=== PATIENT | male | born 1990 | race Caucasian/White ===

== ENCOUNTER 2018-11-02 10:14 | Day surgery (SDC) | payer MEDICAID ==
[2018-11-02] MEDS ORDERED: LIDOcaine 2% 5ml jelly ONE (11:36)
== END 2018-11-02 12:05 | disposition home or self-care (01) ==
LOC: WOUND CARE 10:14
PROVIDERS: ATTEND Surgery
DX: L98.492 Non-pressure chronic ulcer of skin of other sites with fat layer exposed (principal); L05.01 Pilonidal cyst with abscess; G40.409 Other generalized epilepsy and epileptic syndromes, not intractable, without status epilepticus; F20.9 Schizophrenia, unspecified
CPT/HCPCS: 97597; A4663; A6021

== ENCOUNTER 2018-11-09 09:10 | Day surgery (SDC) | payer MEDICAID ==
[2018-11-09] MEDS ORDERED: LIDOcaine 2% 5ml jelly ONE (09:40)
== END 2018-11-09 10:30 | disposition home or self-care (01) ==
LOC: WOUND CARE 09:10
PROVIDERS: ATTEND Surgery
DX: L98.492 Non-pressure chronic ulcer of skin of other sites with fat layer exposed (principal); L05.01 Pilonidal cyst with abscess; G40.409 Other generalized epilepsy and epileptic syndromes, not intractable, without status epilepticus; F20.9 Schizophrenia, unspecified
CPT/HCPCS: 97597; A4663; A6021

== ENCOUNTER 2018-11-16 09:15 | Day surgery (SDC) | payer MEDICAID ==
[2018-11-16] MEDS ORDERED: LIDOcaine 2% 5ml jelly ONE (09:29)
== END 2018-11-16 10:20 | disposition home or self-care (01) ==
LOC: WOUND CARE 09:15
PROVIDERS: ATTEND Surgery
DX: L98.492 Non-pressure chronic ulcer of skin of other sites with fat layer exposed (principal); L05.01 Pilonidal cyst with abscess; G40.409 Other generalized epilepsy and epileptic syndromes, not intractable, without status epilepticus; F20.9 Schizophrenia, unspecified
CPT/HCPCS: 97597; A6021

== ENCOUNTER 2018-11-23 09:30 | Day surgery (SDC) | payer MEDICAID ==
[2018-11-23] MEDS ORDERED: LIDOcaine 2% 5ml jelly ONE (10:11)
== END 2018-11-23 10:46 | disposition home or self-care (01) ==
LOC: WOUND CARE 09:30
PROVIDERS: ATTEND Surgery
DX: L98.492 Non-pressure chronic ulcer of skin of other sites with fat layer exposed (principal); L05.01 Pilonidal cyst with abscess; G40.409 Other generalized epilepsy and epileptic syndromes, not intractable, without status epilepticus; F20.9 Schizophrenia, unspecified
CPT/HCPCS: 97597; A4663; A6021

== ENCOUNTER 2018-11-29 09:05 | Day surgery (SDC) | payer MEDICAID ==
[2018-11-29] MEDS ORDERED: LIDOcaine 2% 5ml jelly ONE (09:28)
== END 2018-11-29 10:30 | disposition home or self-care (01) ==
LOC: WOUND CARE 09:05
PROVIDERS: ATTEND Surgery
DX: L98.492 Non-pressure chronic ulcer of skin of other sites with fat layer exposed (principal); L05.01 Pilonidal cyst with abscess; G40.409 Other generalized epilepsy and epileptic syndromes, not intractable, without status epilepticus; F20.9 Schizophrenia, unspecified
CPT/HCPCS: 97597; A4663; A6021

== ENCOUNTER 2018-12-06 10:09 | Day surgery (SDC) | payer MEDICAID ==
[2018-12-06] MEDS ORDERED: LIDOcaine 2% 5ml jelly ONE (11:02)
== END 2018-12-06 12:18 | disposition home or self-care (01) ==
LOC: WOUND CARE 10:09
PROVIDERS: ATTEND Surgery
DX: L98.492 Non-pressure chronic ulcer of skin of other sites with fat layer exposed (principal); L05.01 Pilonidal cyst with abscess; G40.409 Other generalized epilepsy and epileptic syndromes, not intractable, without status epilepticus; F20.9 Schizophrenia, unspecified
CPT/HCPCS: 97597; A4663; A6021

== ENCOUNTER 2018-12-27 10:09 | Outpatient (CLI) | payer MEDICAID | END 2018-12-27 11:20 | disposition home or self-care (01) | LOC: WOUND CARE 10:09 → EDSTATUS 10:30 → WOUND CARE 11:20 | PROVIDERS: ATTEND Surgery | DX: L98.492 Non-pressure chronic ulcer of skin of other sites with fat layer exposed (principal); L05.01 Pilonidal cyst with abscess; G40.409 Other generalized epilepsy and epileptic syndromes, not intractable, without status epilepticus; F20.9 Schizophrenia, unspecified | CPT/HCPCS: A4663; G0463 ==

== ENCOUNTER 2019-01-26 15:36 | Outpatient (CLI) | payer MEDICAID | END 2019-01-26 23:59 | disposition home or self-care (01) | LOC: RAD 15:36 | DX: R56.9 Unspecified convulsions (principal) | CPT/HCPCS: 95816 ==

== ENCOUNTER 2020-09-25 11:37 | Inpatient (IN) | payer MEDICAID ==
[~2020-09-25] VITALS: Ht 185.4 cm; Wt 99.1 kg
[2020-09-25] VITALS (15 sets, daily range): BP systolic 108–139; BP diastolic 70–86
[2020-09-25] MEDS ORDERED: levoFLOXACIN-Levaquin 750MG/D5 150 ML IV ONE (12:15)
[2020-09-25] MEDS ORDERED: normal saline 1000ML IV soln IV ONE (12:15)
[2020-09-25] MEDS ORDERED: morphine 4 MG/ML inj SYRINge IV PRN ×3 (12:15→17:40)
[2020-09-25] MEDS ORDERED: ondansetron/PF 4mg/2ml inj IV ONE (12:15)
[2020-09-25 12:32] LABS: BASOPHILS % (AUTO) 0.1 % (0-1); EOSINOPHILS % (AUTO) 0 % (0-6); HEMATOCRIT 44.5 % (42.0-52.0); HEMOGLOBIN 15.2 g/dl (14.0-17.9); LYMPHOCYTES # (AUTO) 0.6 X10'3 (1.1-4.8); LYMPHOCYTES % (AUTO) 3.1 % (21-51); MEAN CORPUSCULAR HEMOGLOBIN 29.3 PG (27.0-31.0); MEAN CORPUSCULAR HGB CONC 34.2 g/dL (33.0-36.5); MEAN CORPUSCULAR VOLUME 85.8 FL (78-98); MEAN PLATELET VOLUME 8.2 FL (7.4-10.4); MONOCYTES # (AUTO) 0.8 X10'3 (0-0.9); MONOCYTES % (AUTO) 3.9 % (2-12); NEUTROPHILS # (AUTO) 18.5 X10'3 (1.8-7.7); NEUTROPHILS % (AUTO) 92.9 % (42-75); PLATELET COUNT 266 X10'3 (140-440); RED BLOOD COUNT 5.19 X10'6 (4.70-6.10); RED CELL DISTRIBUTION WIDTH 13.8 % (11.5-14.5); WHITE BLOOD COUNT 19.9 X10'3 (4.5-11.0)
[2020-09-25 12:46] LABS: ALANINE AMINOTRANSFERASE 26 U/L (12-78); ALBUMIN 4.1 G/DL (3.4-5.0); ALBUMIN/GLOBULIN RATIO 0.9 (1.1-1.5); ALKALINE PHOSPHATASE 53 IU/L (46-116); ANION GAP 13 (8-16); ASPARTATE AMINO TRANSFERASE 15 U/L (10-37); BLOOD UREA NITROGEN 21 MG/DL (7-18); BUN/CREATININE RATIO 8.7 (5.4-32.0); CHLORIDE 95 MMOL/L (99-107); CREATININE 2.41 MG/DL (0.60-1.10); GLUCOSE 173 MG/DL (70-104); LIPASE < 50 U/L (73-393); POTASSIUM 3.8 MMOL/L (3.5-5.1); SODIUM 131 MMOL/L (135-145); TOTAL PROTEIN 8.6 G/DL (6.4-8.2); eGFR 32 ML/MIN
[2020-09-25] MEDS ORDERED: iohexol 300mg/ml 100ml inj. ONE (13:19)
[2020-09-25 13:43] LABS: TOTAL CELLS COUNTED 100
[2020-09-25 13:44] LABS: PLATELET ESTIMATE NORMAL; TOXIC GRANULATION 1+; TOXIC VACUOLATION 1+
[2020-09-25] MEDS ORDERED: metroNIDAZOLE-Flagyl 500mg/NS 100 ML IV STA (14:18)
[2020-09-25] MEDS ORDERED: morphine 2 MG/ML inj. syringe IV PRN ×3 (14:20→17:40)
[2020-09-25] MEDS ORDERED: mag hydrox/Alum hydrox/simeth 30ml oral suspension PO PRN (14:20)
[2020-09-25] MEDS ORDERED: magnesium hydroxide 30ml (MOM) UD suspension PO PRN (14:20)
[2020-09-25] MEDS ORDERED: normal saline 1000ml 1,000 ML IV SCH (14:20)
[2020-09-25] MEDS ORDERED: acetaminophen 325mg tablet PO PRN (14:20)
[2020-09-25] MEDS ORDERED: CHOL200080 PO (15:08)
[2020-09-25] MEDS ORDERED: LAMO150T6 PO (15:08)
[2020-09-25] MEDS ORDERED: BENZ0.5T4 PO (15:08)
[2020-09-25] MEDS ORDERED: HYDR50TA65 PO (15:08)
[2020-09-25] MEDS ORDERED: OLAN20TA34 PO (15:08)
[2020-09-25] MEDS ORDERED: PERP4TAB11 PO (15:08)
[2020-09-25] MEDS ORDERED: FENO200C23 PO (15:08)
--- NOTE | 2020-09-25 15:50 | NUR ---
PT LAST ATE WEDNESDAY, LAST FLUID INTAKE 629 THIS AM. NATHAN CALLED FROM OR AND WILL BE COMING TO GET PT WITHIN THE HOUR
[2020-09-25] MEDS ORDERED: metroNIDAZOLE-Flagyl 500mg/NS 100 ML IV SCH (16:00)
[2020-09-25] MEDS ORDERED: BUPIVAcaine 0.5% inj/PF 30 ML ONE (16:34)
[2020-09-25] MEDS ORDERED: LIDOcaine 1% 30ml preserv. free vial ONE (16:34)
[2020-09-25] MEDS ORDERED: ondansetron/PF 4mg/2ml inj IV PRN ×3 (17:05→19:05)
[2020-09-25] MEDS ORDERED: meperidine/PF 25mg/ml syringe IV PRN ×4 (17:05→17:40)
[2020-09-25] MEDS ORDERED: HYDROmorphone/PF 0.2 MG/ML SYRINGE IV PRN ×2 (17:05)
[2020-09-25] MEDS ORDERED: ringers solution, lacted 1,000 ML IV SCH ×2 (17:05→17:40)
[2020-09-25] MEDS ORDERED: propofol inj 20 ML IV ONE (17:28)
[2020-09-25] MEDS ORDERED: midazolam 1 mg/ML 2ml injection ONE (17:28)
[2020-09-25] MEDS ORDERED: fentaNYL /PF 50mcg/ml 5ml ampule ONE (17:28)
[2020-09-25] MEDS ORDERED: rocuronium 10mg/ml inj IV ONE (17:29)
[2020-09-25] MEDS ORDERED: proCHLORperazine 10 MG/2 ml inj IV PRN (17:40)
[2020-09-25] MEDS ORDERED: sevoflurane 250ml liquid IH ONE (17:46)
[2020-09-25] MEDS ORDERED: BUPIVAcaine 0.5% inj/PF 30 ml vial IJ ONE (18:26)
[2020-09-25] MEDS ORDERED: neostigmine methylsulfate 1 MG/ML 10ml vial ONE (18:51)
[2020-09-25] MEDS ORDERED: glycopyrrolate 0.2mg/ml inj ONE (18:51)
[2020-09-25] MEDS ORDERED: ondansetron/PF 4mg/2ml inj ONE (18:54)
[2020-09-25] MEDS ORDERED: normal saline 1000ml 1,000 ML IV ONE (19:05)
--- NOTE | 2020-09-25 19:10 | NUR ---
PT ARRIVED FROM OR VIA BED WITH DR. HINOJOSA, ANESTHESIA REPORT GIVEN, VSS, PT SLEEPING STILL, NO SN/SX OF PAIN NOTED, F/C PLACED IN OR-DRAINING DARK YELLOW URINE, SCDS IN PLACE, 20G PIV TO RUE-LR RUNNING, LAP SITES X3 COVERED WITH BANDAIDS-CDI, SHARRI TO RLQ-DRAINING SERO-SANGUINE FLUID, PT IS AUTISTIC, HX OF SEIZURES-NO SN/SX OF ANY ACTIVITY AT THIS TIME.
[2020-09-25] MEDS: lamoTRIgine 100mg tablet PO SCH (20:00)
[2020-09-25] MEDS: lamoTRIgine 25mg tablet PO SCH (20:00)
[2020-09-25] MEDS: heparin, porcine 5000 units/ml vial SQ SCH (20:00)
[2020-09-25] MEDS: acetaminophen 325mg tablet PO SCH (20:00)
[2020-09-25] MEDS: benztropine 1mg tablet PO SCH (20:00)
[2020-09-25] MEDS: ringers solution, lacted 1,000 ML IV SCH (20:17)
--- NOTE | 2020-09-25 20:30 | NUR ---
PT AWAKE, ABLE TO ANSWER QUESTIONS-DENIES PAIN BUT ENCOURAGED TO SHARE IF ANY PAIN OR NAUSEA STARTS, PT SLOW TO ANSWER BUT ANSWERING APPROPRIATELY WHEN ASKED, PT RECEIVED IV NS BOLUS 1 LTR AND THEN STARTED ON MAINTENANCE FLUID LR@150ML/HR, F/C DRAINING DARK URINE WELL, LAP SITES X 4 COVERED WITH BANDAIDS-CDI, SHARRI TO UPPER RIGHT QUAD-SXN INTACT, SEROUS FLUID, SCDS IN PLACE, 02 VIA NC ON PT, VSS, REPORT CALLED TO [employer] OFFICER[employer], ALL QUESTIONS ANSWERED, TAKEN WITH BELONGINGS TO ROOM 340A, HOOKED UP TO MONITORS, BED LOW AND LOCKED, CALL LIGHT IN REACH, PROJECT ADMINISTRATOR AND DAD AT BEDSIDE TO ANSWER QUESTIONS FOR PRIMARY RN JUDY KIM.
--- NOTE | 2020-09-25 20:45 | NUR ---
PATIENT ADMITTED TO ROOM 340A FROM RECOVERY ROOM AFTER LAP APPY WAS DON BY DR. HUERTAS. PLACED COMFORTABLE IN BED. VITAL SIGNS MONITORED.
[2020-09-25] MEDS: olanzapine 10mg tablet PO SCH (21:00)
[2020-09-25] MEDS: hydrOXYzine 25 MG tablet PO SCH (21:00)
[2020-09-26] VITALS (7 sets, daily range): BP systolic 120–136; BP diastolic 69–88
[2020-09-26] MEDS: metroNIDAZOLE-Flagyl 500mg/NS 100 ML IV SCH ×3 (00:32→16:22)
[2020-09-26] MEDS: acetaminophen 325mg tablet PO SCH ×4 (02:00→20:44)
[2020-09-26] MEDS: ondansetron/PF 4mg/2ml inj IV PRN ×2 (02:07→13:24)
[2020-09-26] MEDS: HYDROmorphone 1 mg/ml syringe IV PRN ×3 (02:10→20:44)
[2020-09-26] MEDS: ringers solution, lacted 1,000 ML IV SCH ×4 (04:56→22:26)
--- NOTE | 2020-09-26 06:15 | NUR ---
Patient in room [facility]. I have received report from Susan Davis RN and had the opportunity to ask questions and assume patient care.
--- NOTE | 2020-09-26 06:30 | NUR ---
Problems reprioritized. Patient report given, questions answered & plan of care reviewed with CHING MAC.
[2020-09-26] MEDS: benztropine 1mg tablet PO SCH ×2 (07:26→20:53)
[2020-09-26] MEDS: cholecalciferol (vitamin D3) 1,000 unit (25mcg) tablet PO SCH (07:27)
[2020-09-26] MEDS: lamoTRIgine 25mg tablet PO SCH ×2 (07:28→20:47)
[2020-09-26] MEDS: hydrOXYzine 25 MG tablet PO SCH ×3 (07:29→20:48)
[2020-09-26] MEDS: lamoTRIgine 100mg tablet PO SCH ×2 (07:38→20:47)
[2020-09-26 07:54] LABS: ALBUMIN 2.7 G/DL (3.4-5.0); ANION GAP 14 (8-16); BASOPHILS % (AUTO) 0.2 % (0-1); BLOOD UREA NITROGEN 13 MG/DL (7-18); BUN/CREATININE RATIO 10.6 (5.4-32.0); CALCIUM 7.8 MG/DL (8.5-10.1); CHLORIDE 104 MMOL/L (99-107); CREATININE 1.23 MG/DL (0.60-1.10); EOSINOPHILS % (AUTO) 0 % (0-6); GLUCOSE 125 MG/DL (70-104); HEMOGLOBIN 13.4 g/dl (14.0-17.9); LYMPHOCYTES # (AUTO) 0.7 X10'3 (1.1-4.8); LYMPHOCYTES % (AUTO) 4.6 % (21-51); MEAN CORPUSCULAR HEMOGLOBIN 30.2 PG (27.0-31.0); MEAN CORPUSCULAR HGB CONC 34.4 g/dL (33.0-36.5); MEAN CORPUSCULAR VOLUME 87.8 FL (78-98); MEAN PLATELET VOLUME 8.2 FL (7.4-10.4); MONOCYTES # (AUTO) 0.6 X10'3 (0-0.9); MONOCYTES % (AUTO) 4.3 % (2-12); NEUTROPHILS % (AUTO) 90.9 % (42-75); PLATELET COUNT 211 X10'3 (140-440); POTASSIUM 3.8 MMOL/L (3.5-5.1); RED BLOOD COUNT 4.44 X10'6 (4.70-6.10); RED CELL DISTRIBUTION WIDTH 14.1 % (11.5-14.5); SODIUM 139 MMOL/L (135-145); TOTAL CARBON DIOXIDE 20.6 MMOL/L (24-32); WHITE BLOOD COUNT 14.3 X10'3 (4.5-11.0); eGFR 69 ML/MIN
[2020-09-26] MEDS ORDERED: enoxaparin 40mg/0.4ml syringe SUBCUT SCH (08:00)
[2020-09-26] MEDS: levoFLOXACIN-Levaquin 750MG/D5 150 ML IV SCH (09:11)
[2020-09-26] MEDS: fenofibrate 145mg tablet PO SCH (09:11)
--- NOTE | 2020-09-26 09:26 | NUR ---
PAGER ID: [phone] MESSAGE: [phone] - re [id number] Desha[facility]. He has an order for Lovenox q day and Heparin Q12H. Do you want both?
[2020-09-26] MEDS: heparin, porcine 5000 units/ml vial SQ SCH ×2 (09:30→20:43)
--- NOTE | 2020-09-26 09:30 | NUR ---
Spoke with Dr. Murillo, verified that both orders heparin q12h and lovenox q day were both wanted. said that the pt needed both the heparin and lovenox administered today.
--- NOTE | 2020-09-26 10:43 | NUR ---
Physical Assessment reviewed and agreed with Beth Lockhart's findings.
--- NOTE | 2020-09-26 18:57 | NUR ---
Problems reprioritized. Patient report given, questions answered & plan of care reviewed with Sisi MAC.
[2020-09-26] MEDS: lactobacillus rhamnosus 10,000 MMU CELLS/CAPSULE PO SCH (20:46)
[2020-09-26] MEDS: olanzapine 10mg tablet PO SCH (20:47)
[2020-09-27] VITALS: BP 136/90
[2020-09-27] MEDS: metroNIDAZOLE-Flagyl 500mg/NS 100 ML IV SCH ×3 (00:08→16:33)
[2020-09-27] MEDS: acetaminophen 325mg tablet PO SCH ×5 (01:41→21:46)
[2020-09-27] MEDS: HYDROmorphone inj. 0.5 MG/0.5 ML DISP.SYRIN IV PRN ×2 (01:41→09:17)
[2020-09-27] MEDS: ringers solution, lacted 1,000 ML IV SCH ×4 (04:25→17:45)
--- NOTE | 2020-09-27 06:10 | NUR ---
Problems reprioritized. Patient report given, questions answered & plan of care reviewed with Kerry MAC. Addendum: 09/27/20 at 0610 by Josey Sahu RN Amended: Links added.
[2020-09-27 07:00] VITALS: BP 140/93
[2020-09-27 07:08] LABS: BASOPHILS % (AUTO) 0.3 % (0-1); EOSINOPHILS % (AUTO) 0 % (0-6); HEMATOCRIT 37.3 % (42.0-52.0); HEMOGLOBIN 12.7 g/dl (14.0-17.9); LYMPHOCYTES # (AUTO) 0.9 X10'3 (1.1-4.8); LYMPHOCYTES % (AUTO) 8.6 % (21-51); MEAN CORPUSCULAR HEMOGLOBIN 29.9 PG (27.0-31.0); MEAN CORPUSCULAR HGB CONC 34.2 g/dL (33.0-36.5); MEAN CORPUSCULAR VOLUME 87.6 FL (78-98); MEAN PLATELET VOLUME 8.1 FL (7.4-10.4); MONOCYTES # (AUTO) 0.6 X10'3 (0-0.9); MONOCYTES % (AUTO) 5.3 % (2-12); NEUTROPHILS # (AUTO) 9.3 X10'3 (1.8-7.7); NEUTROPHILS % (AUTO) 85.8 % (42-75); PLATELET COUNT 247 X10'3 (140-440); RED BLOOD COUNT 4.26 X10'6 (4.70-6.10); RED CELL DISTRIBUTION WIDTH 14.1 % (11.5-14.5); WHITE BLOOD COUNT 10.8 X10'3 (4.5-11.0)
[2020-09-27 07:24] LABS: ALBUMIN 2.4 G/DL (3.4-5.0); ANION GAP 12 (8-16); BLOOD UREA NITROGEN 14 MG/DL (7-18); BUN/CREATININE RATIO 13.1 (5.4-32.0); CALCIUM 8.1 MG/DL (8.5-10.1); CHLORIDE 103 MMOL/L (99-107); CREATININE 1.07 MG/DL (0.60-1.10); GLUCOSE 120 MG/DL (70-104); POTASSIUM 3.7 MMOL/L (3.5-5.1); SODIUM 139 MMOL/L (135-145); TOTAL CARBON DIOXIDE 24.5 MMOL/L (24-32); eGFR 81 ML/MIN
[2020-09-27] MEDS: ondansetron/PF 4mg/2ml inj IV PRN ×2 (09:17→18:17)
[2020-09-27] MEDS: heparin, porcine 5000 units/ml vial SQ SCH ×2 (09:18→20:47)
[2020-09-27] MEDS: levoFLOXACIN-Levaquin 750MG/D5 150 ML IV SCH (10:43)
[2020-09-27 11:00] VITALS: BP 142/95
[2020-09-27] MEDS: fenofibrate 145mg tablet PO SCH (11:07)
[2020-09-27] MEDS: lamoTRIgine 25mg tablet PO SCH ×2 (11:07→20:42)
[2020-09-27] MEDS: lamoTRIgine 100mg tablet PO SCH ×2 (11:09→20:41)
[2020-09-27] MEDS: lactobacillus rhamnosus 10,000 MMU CELLS/CAPSULE PO SCH ×2 (11:10→20:41)
[2020-09-27] MEDS: benztropine 1mg tablet PO SCH ×2 (11:10→20:55)
[2020-09-27] MEDS: hydrOXYzine 25 MG tablet PO SCH ×3 (11:10→20:40)
[2020-09-27] MEDS: cholecalciferol (vitamin D3) 1,000 unit (25mcg) tablet PO SCH (11:11)
[2020-09-27 18:00] VITALS: BP 142/90
--- NOTE | 2020-09-27 18:14 | NUR ---
Patient in room [facility]. I have received report from ESTEFANIA Hale and had the opportunity to ask questions and assume patient care.
--- NOTE | 2020-09-27 18:49 | NUR ---
Problems reprioritized. Patient report given, questions answered & plan of care reviewed with Chong MAC.
[2020-09-27] MEDS: olanzapine 10mg tablet PO SCH (20:44)
[2020-09-27] MEDS: morphine 2 MG/ML inj. syringe IV PRN (20:49)
[2020-09-28] VITALS: BP 126/86
[2020-09-28] MEDS: metroNIDAZOLE-Flagyl 500mg/NS 100 ML IV SCH ×3 (00:07→17:01)
[2020-09-28] MEDS: ringers solution, lacted 1,000 ML IV SCH ×4 (00:25→20:31)
[2020-09-28 07:17] LABS: BASOPHILS % (AUTO) 0.3 % (0-1); EOSINOPHILS % (AUTO) 0 % (0-6); HEMATOCRIT 36.2 % (42.0-52.0); HEMOGLOBIN 12.4 g/dl (14.0-17.9); LYMPHOCYTES # (AUTO) 1.5 X10'3 (1.1-4.8); LYMPHOCYTES % (AUTO) 18.4 % (21-51); MEAN CORPUSCULAR HEMOGLOBIN 29.7 PG (27.0-31.0); MEAN CORPUSCULAR HGB CONC 34.2 g/dL (33.0-36.5); MEAN CORPUSCULAR VOLUME 86.8 FL (78-98); MEAN PLATELET VOLUME 7.5 FL (7.4-10.4); MONOCYTES # (AUTO) 0.5 X10'3 (0-0.9); MONOCYTES % (AUTO) 6.2 % (2-12); NEUTROPHILS % (AUTO) 75.1 % (42-75); PLATELET COUNT 288 X10'3 (140-440); RED BLOOD COUNT 4.17 X10'6 (4.70-6.10); RED CELL DISTRIBUTION WIDTH 14.4 % (11.5-14.5)
[2020-09-28 07:32] LABS: ALBUMIN 2.1 G/DL (3.4-5.0); ANION GAP 7 (8-16); BLOOD UREA NITROGEN 13 MG/DL (7-18); BUN/CREATININE RATIO 12.5 (5.4-32.0); CALCIUM 7.9 MG/DL (8.5-10.1); CHLORIDE 106 MMOL/L (99-107); CREATININE 1.04 MG/DL (0.60-1.10); GLUCOSE 105 MG/DL (70-104); POTASSIUM 3.5 MMOL/L (3.5-5.1); SODIUM 139 MMOL/L (135-145); eGFR 83 ML/MIN
[2020-09-28 08:00] VITALS: BP 129/87
[2020-09-28] MEDS: lamoTRIgine 100mg tablet PO SCH ×2 (08:00→20:26)
[2020-09-28] MEDS: fenofibrate 145mg tablet PO SCH (08:13)
[2020-09-28] MEDS: lactobacillus rhamnosus 10,000 MMU CELLS/CAPSULE PO SCH ×2 (08:13→20:25)
[2020-09-28] MEDS: cholecalciferol (vitamin D3) 1,000 unit (25mcg) tablet PO SCH (08:14)
[2020-09-28] MEDS: lamoTRIgine 25mg tablet PO SCH ×3 (08:14→20:25)
[2020-09-28] MEDS: acetaminophen 325mg tablet PO SCH ×3 (08:14→20:27)
[2020-09-28] MEDS: hydrOXYzine 25 MG tablet PO SCH ×3 (08:15→20:25)
[2020-09-28] MEDS: heparin, porcine 5000 units/ml vial SQ SCH ×2 (08:18→20:28)
[2020-09-28] MEDS: benztropine 1mg tablet PO SCH ×2 (08:20→20:24)
[2020-09-28] MEDS: levoFLOXACIN-Levaquin 750MG/D5 150 ML IV SCH (09:36)
[2020-09-28 11:00] VITALS: BP 120/83
--- NOTE | 2020-09-28 12:08 | NUR ---
Patient up OOB walked hallway with care process manager, tolerated well.
[2020-09-28] MEDS: morphine 2 MG/ML inj. syringe IV PRN ×2 (17:02→20:34)
--- NOTE | 2020-09-28 18:20 | NUR ---
Report given to NOC shift.
[2020-09-28 20:00] VITALS: BP 132/87
[2020-09-28] MEDS: olanzapine 10mg tablet PO SCH (20:30)
[2020-09-28] MEDS: HYDROmorphone inj. 0.5 MG/0.5 ML DISP.SYRIN IV PRN (22:55)
[2020-09-29] VITALS: BP 136/93
[2020-09-29] MEDS: metroNIDAZOLE-Flagyl 500mg/NS 100 ML IV SCH ×3 (00:45→15:23)
[2020-09-29] MEDS: acetaminophen 325mg tablet PO SCH ×4 (02:00→19:52)
[2020-09-29] MEDS: HYDROmorphone inj. 0.5 MG/0.5 ML DISP.SYRIN IV PRN ×2 (02:52→08:39)
[2020-09-29] MEDS: ringers solution, lacted 1,000 ML IV SCH ×3 (04:59→21:37)
--- NOTE | 2020-09-29 06:34 | NUR ---
Problems reprioritized. Patient report given, questions answered & plan of care reviewed with Michelle MAC. Addendum: 09/29/20 at 0634 by Josey Sahu RN Amended: Links added.
--- NOTE | 2020-09-29 06:48 | NUR ---
Patient in room [facility]. I have received report from ESTEFANIA Dowling and had the opportunity to ask questions and assume patient care.
[2020-09-29 07:42] LABS: HEMATOCRIT 38.8 % (42.0-52.0); HEMOGLOBIN 13.2 g/dl (14.0-17.9); MEAN CORPUSCULAR HEMOGLOBIN 29.7 PG (27.0-31.0); MEAN CORPUSCULAR VOLUME 87.5 FL (78-98); PLATELET COUNT 327 X10'3 (140-440); RED BLOOD COUNT 4.43 X10'6 (4.70-6.10); RED CELL DISTRIBUTION WIDTH 14.4 % (11.5-14.5); WHITE BLOOD COUNT 9.5 X10'3 (4.5-11.0)
[2020-09-29 07:43] LABS: BASOPHILS % (AUTO) 0.4 % (0-1); EOSINOPHILS % (AUTO) 0 % (0-6); LYMPHOCYTES # (AUTO) 1.1 X10'3 (1.1-4.8); LYMPHOCYTES % (AUTO) 11.3 % (21-51); MEAN PLATELET VOLUME 7.3 FL (7.4-10.4); MONOCYTES # (AUTO) 0.7 X10'3 (0-0.9); MONOCYTES % (AUTO) 6.9 % (2-12); NEUTROPHILS # (AUTO) 7.7 X10'3 (1.8-7.7); NEUTROPHILS % (AUTO) 81.4 % (42-75)
[2020-09-29 07:44] LABS: ALBUMIN 2.3 G/DL (3.4-5.0); ANION GAP 11 (8-16); BLOOD UREA NITROGEN 10 MG/DL (7-18); BUN/CREATININE RATIO 10.1 (5.4-32.0); CALCIUM 8.1 MG/DL (8.5-10.1); CHLORIDE 105 MMOL/L (99-107); CREATININE 0.99 MG/DL (0.60-1.10); GLUCOSE 97 MG/DL (70-104); POTASSIUM 3.6 MMOL/L (3.5-5.1); SODIUM 139 MMOL/L (135-145); TOTAL CARBON DIOXIDE 22.9 MMOL/L (24-32); eGFR 88 ML/MIN
[2020-09-29] MEDS: benztropine 1mg tablet PO SCH ×2 (08:00→19:54)
[2020-09-29] MEDS: heparin, porcine 5000 units/ml vial SQ SCH ×2 (08:38→19:53)
[2020-09-29] MEDS: lamoTRIgine 25mg tablet PO SCH ×2 (08:39→19:51)
[2020-09-29] MEDS: hydrOXYzine 25 MG tablet PO SCH ×3 (08:39→21:38)
[2020-09-29] MEDS: cholecalciferol (vitamin D3) 1,000 unit (25mcg) tablet PO SCH (08:39)
[2020-09-29] MEDS: lamoTRIgine 100mg tablet PO SCH ×2 (08:39→19:51)
[2020-09-29] MEDS: fenofibrate 145mg tablet PO SCH (08:40)
[2020-09-29] MEDS: levoFLOXACIN-Levaquin 750MG/D5 150 ML IV SCH (08:40)
[2020-09-29] MEDS: lactobacillus rhamnosus 10,000 MMU CELLS/CAPSULE PO SCH ×2 (08:40→19:55)
[2020-09-29 11:04] VITALS: BP 140/95
[2020-09-29 18:00] VITALS: BP 130/88
--- NOTE | 2020-09-29 18:10 | NUR ---
Patient in room [facility]A. I have received report from ESTEFANIA Martinez and had the opportunity to ask questions and assume patient care.
--- NOTE | 2020-09-29 18:26 | NUR ---
Problems reprioritized. Patient report given, questions answered & plan of care reviewed with ESTEFANIA Silva.
[2020-09-29] MEDS: magnesium hydroxide 30ml (MOM) UD suspension PO SCH (19:53)
[2020-09-29] MEDS: olanzapine 10mg tablet PO SCH (21:38)
[2020-09-30] VITALS: BP 126/81
[2020-09-30] MEDS: metroNIDAZOLE-Flagyl 500mg/NS 100 ML IV SCH ×3 (00:05→17:31)
[2020-09-30] MEDS: acetaminophen 325mg tablet PO SCH ×4 (02:00→20:07)
--- NOTE | 2020-09-30 06:30 | NUR ---
Problems reprioritized. Patient report given, questions answered & plan of care reviewed with ESTEFANIA Pizarro.
[2020-09-30 06:41] LABS: BASOPHILS % (AUTO) 0.4 % (0-1); EOSINOPHILS % (AUTO) 0 % (0-6); HEMATOCRIT 38.2 % (42.0-52.0); HEMOGLOBIN 13.3 g/dl (14.0-17.9); LYMPHOCYTES # (AUTO) 1.4 X10'3 (1.1-4.8); LYMPHOCYTES % (AUTO) 14.7 % (21-51); MEAN CORPUSCULAR HEMOGLOBIN 29.6 PG (27.0-31.0); MEAN CORPUSCULAR HGB CONC 34.9 g/dL (33.0-36.5); MEAN CORPUSCULAR VOLUME 84.8 FL (78-98); MEAN PLATELET VOLUME 7.3 FL (7.4-10.4); MONOCYTES # (AUTO) 0.8 X10'3 (0-0.9); MONOCYTES % (AUTO) 8.5 % (2-12); NEUTROPHILS # (AUTO) 7.1 X10'3 (1.8-7.7); NEUTROPHILS % (AUTO) 76.4 % (42-75); PLATELET COUNT 366 X10'3 (140-440); RED CELL DISTRIBUTION WIDTH 14.4 % (11.5-14.5); WHITE BLOOD COUNT 9.2 X10'3 (4.5-11.0)
[2020-09-30 06:54] LABS: ALBUMIN 2.2 G/DL (3.4-5.0); ANION GAP 13 (8-16); BLOOD UREA NITROGEN 13 MG/DL (7-18); CALCIUM 8.1 MG/DL (8.5-10.1); CHLORIDE 104 MMOL/L (99-107); CREATININE 0.93 MG/DL (0.60-1.10); GLUCOSE 100 MG/DL (70-104); POTASSIUM 3.4 MMOL/L (3.5-5.1); SODIUM 139 MMOL/L (135-145); TOTAL CARBON DIOXIDE 21.8 MMOL/L (24-32); eGFR > 90 ML/MIN
[2020-09-30 07:00] VITALS: BP 128/81
[2020-09-30 07:46] LABS: PLATELET ESTIMATE NORMAL; TOTAL CELLS COUNTED 100
[2020-09-30] MEDS: magnesium hydroxide 30ml (MOM) UD suspension PO SCH ×2 (07:50→20:06)
[2020-09-30] MEDS: lamoTRIgine 25mg tablet PO SCH ×2 (07:50→20:07)
[2020-09-30] MEDS: hydrOXYzine 25 MG tablet PO SCH ×3 (07:52→20:08)
[2020-09-30] MEDS: lamoTRIgine 100mg tablet PO SCH ×2 (07:52→20:07)
[2020-09-30] MEDS: fenofibrate 145mg tablet PO SCH (07:52)
[2020-09-30] MEDS: lactobacillus rhamnosus 10,000 MMU CELLS/CAPSULE PO SCH ×2 (07:52→20:06)
[2020-09-30] MEDS: cholecalciferol (vitamin D3) 1,000 unit (25mcg) tablet PO SCH (07:53)
[2020-09-30] MEDS: benztropine 1mg tablet PO SCH ×2 (07:54→20:08)
[2020-09-30] MEDS: heparin, porcine 5000 units/ml vial SQ SCH ×2 (07:55→20:08)
[2020-09-30] MEDS ORDERED: magnesium hydroxide 30ml (MOM) UD suspension PO ONE (10:05)
[2020-09-30 11:00] VITALS: BP 126/82
[2020-09-30] MEDS: levoFLOXACIN-Levaquin 750MG/D5 150 ML IV SCH (11:02)
[2020-09-30 18:00] VITALS: BP_SYST 128; BP_SYST 154; BP_DIAS 79; BP_DIAS 89
--- NOTE | 2020-09-30 18:32 | NUR ---
Report given to Shira MAC
[2020-09-30] MEDS: ondansetron/PF 4mg/2ml inj IV PRN (20:04)
[2020-09-30] MEDS: olanzapine 10mg tablet PO SCH (20:08)
[2020-09-30] MEDS: diatr meglu/diatrizoate 30ml oral sol.-(3 dose) bottle PO SCH (21:38)
[2020-10-01] VITALS: BP 125/81
[2020-10-01] MEDS: metroNIDAZOLE-Flagyl 500mg/NS 100 ML IV SCH ×3 (00:42→18:06)
[2020-10-01] MEDS: ringers solution, lacted 1,000 ML IV SCH ×2 (00:42→21:34)
[2020-10-01] MEDS: acetaminophen 325mg tablet PO SCH ×4 (01:42→19:50)
--- NOTE | 2020-10-01 06:05 | NUR ---
Patient in room [facility]. I have received report from Shira MAC and had the opportunity to ask questions and assume patient care.
[2020-10-01] MEDS: lactobacillus rhamnosus 10,000 MMU CELLS/CAPSULE PO SCH ×2 (07:31→19:50)
[2020-10-01] MEDS: diatr meglu/diatrizoate 30ml oral sol.-(3 dose) bottle PO SCH ×2 (07:31→09:45)
[2020-10-01] MEDS: benztropine 1mg tablet PO SCH ×2 (07:32→19:50)
[2020-10-01] MEDS: lamoTRIgine 25mg tablet PO SCH ×2 (07:32→19:50)
[2020-10-01] MEDS: lamoTRIgine 100mg tablet PO SCH ×2 (07:32→19:50)
[2020-10-01] MEDS: hydrOXYzine 25 MG tablet PO SCH ×3 (07:32→21:32)
[2020-10-01] MEDS: fenofibrate 145mg tablet PO SCH (07:32)
[2020-10-01] MEDS: cholecalciferol (vitamin D3) 1,000 unit (25mcg) tablet PO SCH (07:32)
[2020-10-01] MEDS: heparin, porcine 5000 units/ml vial SQ SCH ×2 (07:33→19:50)
[2020-10-01] MEDS: ondansetron/PF 4mg/2ml inj IV PRN (07:51)
[2020-10-01 08:00] VITALS: BP 137/89
[2020-10-01] MEDS ORDERED: iohexol 300mg/ml 100ml inj. ONE (09:18)
[2020-10-01] MEDS: levoFLOXACIN-Levaquin 750MG/D5 150 ML IV SCH (10:49)
[2020-10-01] MEDS: magnesium hydroxide 30ml (MOM) UD suspension PO SCH ×2 (10:50→19:50)
[2020-10-01 11:00] VITALS: BP 125/82
--- NOTE | 2020-10-01 12:24 | NUR ---
Initial: Pt admit for ruptured appendix, s/p laparoscopic appendectomy and drainage of peritoneal abscess 09/25. Pt has been on a clear liquid diet post-op and documented with 0-25% PO intake though pt currently documented as NPO. Unable to meet estimated nutrient needs on current diet order. LBM 09/25. Pt s/p CT of abdomen/pelvis today which per report shows "consolidation with air bronchograms and medium-sized pleural effusions at both lung bases; peripherally enhancing right lower quadrant fluid collection without internal gas, consider abscess; and dilated loops of small bowel, possibly an ileus though oral contrast reaches the rectum". Pt started on routine MoM 09/29. No appropriate nutrition intervention at this time. Pt would benefit from alternative nutrition if unable to advance PO diet with prolonged return of bowel function post-op. Will continue to follow closely. Recommendations: 1) Advance to regular diet as medically indicated 2) Consider alternative nutrition if unable to advance PO diet with prolonged return of bowel function 3) Routine bowel care 4) Scaled weight this admit; weekly scaled weights thereafter Addendum: 10/01/20 at [address] Amended: Links added.
[2020-10-01 18:00] VITALS: BP 120/79
--- NOTE | 2020-10-01 18:13 | NUR ---
Patient in room [facility]A. I have received report from ESTEFANIA Redd and had the opportunity to ask questions and assume patient care.
[2020-10-01] MEDS: olanzapine 10mg tablet PO SCH (21:32)
[2020-10-02] VITALS: BP 129/89
[2020-10-02] MEDS: metroNIDAZOLE-Flagyl 500mg/NS 100 ML IV SCH ×2 (00:17→10:28)
[2020-10-02] MEDS: acetaminophen 325mg tablet PO SCH ×3 (02:00→15:21)
--- NOTE | 2020-10-02 06:45 | NUR ---
Problems reprioritized. Patient report given, questions answered & plan of care reviewed with ESTEFANIA Raymond.
[2020-10-02 07:00] VITALS: BP 118/83
[2020-10-02] MEDS: lactobacillus rhamnosus 10,000 MMU CELLS/CAPSULE PO SCH (10:28)
[2020-10-02] MEDS: cholecalciferol (vitamin D3) 1,000 unit (25mcg) tablet PO SCH (10:29)
[2020-10-02] MEDS: heparin, porcine 5000 units/ml vial SQ SCH (10:29)
[2020-10-02] MEDS: benztropine 1mg tablet PO SCH (10:30)
[2020-10-02] MEDS: lamoTRIgine 25mg tablet PO SCH (10:30)
[2020-10-02] MEDS: lamoTRIgine 100mg tablet PO SCH (10:30)
[2020-10-02] MEDS: magnesium hydroxide 30ml (MOM) UD suspension PO SCH (10:30)
[2020-10-02] MEDS: fenofibrate 145mg tablet PO SCH (10:31)
[2020-10-02] MEDS: hydrOXYzine 25 MG tablet PO SCH ×2 (10:31→15:20)
[2020-10-02] MEDS ORDERED: LEVO500T89 PO (10:43)
[2020-10-02] MEDS ORDERED: METR-159 PO (10:43)
[2020-10-02] MEDS: levoFLOXACIN-Levaquin 750MG/D5 150 ML IV SCH (11:43)
[2020-10-02 15:40] VITALS: BP 118/67
--- NOTE | 2020-10-02 16:15 | NUR ---
DAVID Stokes Pt. discharged. Addendum: 10/02/20 at 1641 by Mandi Garzon RN Reviewed all discharge paperwork with pt. and heavy duty custodian
== END 2020-10-02 16:43 | disposition home or self-care (01) | DRG 710 ==
LOC: ER 11:37 → ED HOLD 14:18 → SUR 3N 20:45
PROVIDERS: ADMIT Family Medicine; ATTEND Family Medicine
PROC: 8E0W4CZ Robotic Assisted Procedure of Trunk Region, Percutaneous Endoscopic Approach (ICD-10-PCS; 2020-09-25)
PROC: 0W9G4ZZ Drainage of Peritoneal Cavity, Percutaneous Endoscopic Approach (ICD-10-PCS; 2020-09-25)
PROC: BW211ZZ Computerized Tomography (CT Scan) of Abdomen and Pelvis using Low Osmolar Contrast (ICD-10-PCS; 2020-09-25)
PROC: 0DTJ4ZZ Resection of Appendix, Percutaneous Endoscopic Approach (ICD-10-PCS; principal; 2020-09-25 17:46)
PROC: BW211ZZ Computerized Tomography (CT Scan) of Abdomen and Pelvis using Low Osmolar Contrast (ICD-10-PCS; 2020-10-01)
DX: A41.9 Sepsis, unspecified organism (principal); N17.0 Acute kidney failure with tubular necrosis; R65.21 Severe sepsis with septic shock; K35.33 Acute appendicitis with perforation, localized peritonitis, and gangrene, with abscess; E66.9 Obesity, unspecified; N18.30 Chronic kidney disease, stage 3 unspecified; E87.1 Hypo-osmolality and hyponatremia; F20.9 Schizophrenia, unspecified; E78.5 Hyperlipidemia, unspecified; F84.0 Autistic disorder; Z68.28 Body mass index [BMI] 28.0-28.9, adult; Z88.0 Allergy status to penicillin; Z79.899 Other long term (current) drug therapy
CPT/HCPCS: 36415; 74018; 74177; 80048; 80053; 83605; 83690; 84132; 84145; 85007; 85025; 87040; 87081; 93005; 96374; 99291; A4215; A4618; A7000; G0378; J1170; J1644; J1650; J1956; J2001; J2250; J2270; J2405; J2704; J2710; J3010; J3490; J7030; J7120; Q0175; Q0177; Q9963; Q9967